=== PATIENT | female | born 1975 | race American Indian/Alaskan Native ===

== ENCOUNTER 2016-11-01 16:14 | Emergency (ER) | payer MEDICARE ==
[~2016-11-01] VITALS: Ht 162.6 cm; Wt 122.7 kg
[~2016-11-01 16:14] MED LIST: ABILIFY; ABILIFY 10MG TA10 MG PO; ABILIFY 15MG TA15 MG PO; ABILIFY DISCMEL10 M1; ABILIFY20 MG PO; AMBIEN10 MG PO; AMOXICILLIN 50500 MG PO; AMOXICILLIN 8751 TAB PO; ANTIVERT 25MG25 MG PO; ATIVAN1 MG PO; AUGMENTIN500 MG/TAB PO; BUSPAR10 MG PO; CELEXA; CELEXA PO; CLARITIN-D 10 M1 T24 PO; CLONAZEPAM PO; CLONAZEPAM1 M1 PO; DOXYCYCLINE 10100 MG PO; INDERAL 10MG10 MG PO; LAMICTAL 100MG100 MG PO; LAMICTAL 25MG T25 MG PO; LAMICTAL PO; LITHIUM CARB300 MG PO; LORTAB 10/500 51 TAB PO; LORTAB 5/500 501 TAB PO; MOBIC 7.5MG7.5 MG PO; MUCINEX FAST-M177 M2 PO; NORCO 325 MG-51 TAB PO; PEN-VEE K500 MG PO; PREDNISONE20 MG PO; PRINIVIL10 MG PO; PROAIR HFA0.09 MG/AC IH; REMERON 15M15 MG/TA1 PO; RISPERDAL3 MG PO; ROXICODONE 55 MG/TAB PO; TOPAMAX 100MG100 M1 PO; TOPAMAX50 MG PO; TOPIRAMATE; TRAZADONE HYDR100 MG PO; TUSS PO; VISTARIL 2525 MG/CAP PO; VISTARIL50 MG PO; VITAMIN B COMPL1 T16 PO; VITAMIN C500 MG PO; ZOFRAN ODT4 MG PO; [UNRECOGNIZED DRUG - OTHER]; [UNRECOGNIZED DRUG - REMARK]
[2016-11-01 16:17] VITALS: BP 139/90; PULSE 111; TEMP 98
[2016-11-01 17:47] LABS: ADJUSTED CALCIUM 8.7 mg/dL (8.4-10.2); ALANINE AMINOTRANSFERASE 49 U/L (9-52); ALBUMIN 4.2 gm/dL (3.5-5.0); ALKALINE PHOSPHATASE 84 U/L (50-136); ANION GAP 12 mmol/L (7-16); BILIRUBIN,TOTAL 0.5 mg/dL (0.0-1.0); BLOOD UREA NITROGEN 6 mg/dL (7-17); CALCIUM 8.9 mg/dL (8.4-10.2); CARBON DIOXIDE 20 mmol/L (22-30); CHLORIDE 107 mmol/L (98-107); GLUCOSE 134 mg/dL (74-106); POTASSIUM 3.5 mmol/L (3.4-5.0); SODIUM 139 mmol/L (137-145); TOTAL PROTEIN 7.3 gm/dL (6.4-8.2)
[2016-11-01 17:48] LABS: ACETAMINOPHEN < 10 ug/mL (10-30); SALICYLATE < 1.0 mg/dL
[2016-11-01 17:56] LABS: BASO # 0.1 (0.0-0.2); BASO % 0.6 % (0.0-2.0); EOS # 0.4 (0.0-0.7); EOS % 3.6 % (0-4.0); GRAN # 7.3 (1.4-6.5); GRAN % 62.1 % (42.2-75.2); HEMATOCRIT 39.3 % (37.0-47.0); HEMOGLOBIN 12.6 g/dl (12.5-16.0); LYMPH # 3.4 (1.2-3.4); LYMPH % 28.7 % (20.0-51.0); MEAN CELL VOLUME 82 fl (80.0-100.0); MEAN CORPUSCULAR HEMOGLOBIN 26 pg (27.0-31.0); MEAN CORPUSCULAR HGB CONC 32 g/dl (33.0-37.0); MONO # 0.5 (0.1-0.6); MONO % 4.4 % (1.7-9.3); PLATELET COUNT 336 K/mm3 (130-400); RED BLOOD COUNT 4.79 M/mm3 (4.10-5.30); REDCELL DISTRIBUTION WIDTH-CV 13.8 % (11.5-14.5); WHITE BLOOD COUNT 11.7 K/mm3 (4.8-10.8)
[2016-11-01 18:00] LABS: AMPHETAMINE URINE POSITIVE; BARBITURATES URINE NEGATIVE; BENZODIAZEPINES URINE NEGATIVE; BUPRENORPHINE URINE NEGATIVE; METHADONE URINE NEGATIVE; OPIATES URINE NEGATIVE; OXYCODONE URINE NEGATIVE; PHENCYCLIDINE URINE NEGATIVE; PROPOXYPHENE URINE NEGATIVE; THC CANNABINOIDS URINE POSITIVE
== END 2016-11-01 17:44 | disposition left against medical advice (07) ==
LOC: COL.ER 16:14
PROVIDERS: Physician Assistant
DX: F29 Unspecified psychosis not due to a substance or known physiological condition (principal); Z53.21 Procedure and treatment not carried out due to patient leaving prior to being seen by health care provider; F31.9 Bipolar disorder, unspecified; Z91.14 Patient's other noncompliance with medication regimen

== ENCOUNTER 2016-11-23 11:11 | Emergency (ER) | payer MEDICARE ==
[~2016-11-23] VITALS: Ht 162.6 cm; Wt 124.1 kg
[2016-11-23 11:22] VITALS: TEMP 98.6
[2016-11-23 12:09] LABS: BASO # 0.1 (0.0-0.2); BASO % 0.4 % (0.0-2.0); EOS # 0.5 (0.0-0.7); EOS % 4.2 % (0-4.0); GRAN # 7.9 (1.4-6.5); GRAN % 66.1 % (42.2-75.2); HEMATOCRIT 38.8 % (37.0-47.0); HEMOGLOBIN 12.5 g/dl (12.5-16.0); MEAN CELL VOLUME 82 fl (80.0-100.0); MEAN CORPUSCULAR HEMOGLOBIN 26 pg (27.0-31.0); MEAN CORPUSCULAR HGB CONC 32 g/dl (33.0-37.0); MONO # 0.5 (0.1-0.6); MONO % 3.9 % (1.7-9.3); PLATELET COUNT 283 K/mm3 (130-400); RED BLOOD COUNT 4.73 M/mm3 (4.10-5.30); REDCELL DISTRIBUTION WIDTH-CV 13.6 % (11.5-14.5)
[2016-11-23 12:26] LABS: ANION GAP 12 mmol/L (7-16); BLOOD UREA NITROGEN 9 mg/dL (7-17); CALCIUM 9.3 mg/dL (8.4-10.2); CARBON DIOXIDE 25 mmol/L (22-30); CHLORIDE 104 mmol/L (98-107); CREATININE, serum 0.87 mg/dL (0.52-1.25); GLUCOSE 115 mg/dL (74-106); POTASSIUM 3.5 mmol/L (3.4-5.0); SODIUM 141 mmol/L (137-145)
[2016-11-23 12:30] LABS: ACETAMINOPHEN < 10 ug/mL (10-30); SALICYLATE < 1.0 mg/dL
[2016-11-23 15:21] VITALS: BP 123/83; PULSE 101
== END 2016-11-23 16:08 ==
LOC: COL.ER 11:11
PROVIDERS: Nurse Practitioner
DX: F31.12 Bipolar disorder, current episode manic without psychotic features, moderate (principal)

== ENCOUNTER 2017-02-17 18:58 | Observation (INO) | payer MEDICARE ==
[~2017-02-17] VITALS: Ht 162.6 cm; Wt 120.8 kg
[2017-02-17 19:51] LABS: BASO # 0.1 (0.0-0.2); BASO % 0.3 % (0.0-2.0); EOS # 0.6 (0.0-0.7); EOS % 3.6 % (0-4.0); GRAN # 10.4 (1.4-6.5); GRAN % 66.2 % (42.2-75.2); HEMATOCRIT 41.5 % (37.0-47.0); HEMOGLOBIN 13.5 g/dl (12.5-16.0); LYMPH # 3.7 (1.2-3.4); LYMPH % 23.9 % (20.0-51.0); MEAN CELL VOLUME 83 fl (80.0-100.0); MEAN CORPUSCULAR HEMOGLOBIN 27 pg (27.0-31.0); MEAN CORPUSCULAR HGB CONC 33 g/dl (33.0-37.0); MEAN PLATELET VOLUME 9.3 fl (7.4-10.4); MONO # 0.8 (0.1-0.6); MONO % 5.2 % (1.7-9.3); PLATELET COUNT 365 K/mm3 (130-400); REDCELL DISTRIBUTION WIDTH-CV 13.5 % (11.5-14.5); WHITE BLOOD COUNT 15.6 K/mm3 (4.8-10.8)
[2017-02-17 20:07] LABS: ACETAMINOPHEN < 10 ug/mL (10-30); ADJUSTED CALCIUM 9.1 mg/dL (8.4-10.2); ALANINE AMINOTRANSFERASE 29 U/L (9-52); ALBUMIN 4.4 gm/dL (3.5-5.0); ALKALINE PHOSPHATASE 79 U/L (50-136); ANION GAP 13 mmol/L (7-16); BILIRUBIN,TOTAL 0.6 mg/dL (0.0-1.0); BLOOD UREA NITROGEN 14 mg/dL (7-17); CALCIUM 9.4 mg/dL (8.4-10.2); CARBON DIOXIDE 24 mmol/L (22-30); CHLORIDE 105 mmol/L (98-107); CREATININE, serum 0.99 mg/dL (0.52-1.25); GLUCOSE 115 mg/dL (74-106); POTASSIUM 3.8 mmol/L (3.4-5.0); SALICYLATE < 1.0 mg/dL; SODIUM 142 mmol/L (137-145); TOTAL PROTEIN 7.8 gm/dL (6.4-8.2)
[2017-02-17 21:15] LABS: PH 6 (5-8); SQUAMOUS EPITHELIAL 20-50 /hpf; URINE APPEARANCE Cloudy; URINE BACTERIA Rare /hpf; URINE BILIRUBIN Negative (NEGATIVE); URINE BLOOD 3+ (NEGATIVE); URINE COLOR Yellow; URINE GLUCOSE Negative (NEGATIVE); URINE KETONE Negative (NEGATIVE); URINE UROBILINOGEN Negative (NEGATIVE)
[2017-02-17 21:24] LABS: AMPHETAMINE URINE POSITIVE; BARBITURATES URINE NEGATIVE; BENZODIAZEPINES URINE NEGATIVE; BUPRENORPHINE URINE NEGATIVE; METHADONE URINE NEGATIVE; OPIATES URINE NEGATIVE; OXYCODONE URINE NEGATIVE; PHENCYCLIDINE URINE NEGATIVE; PROPOXYPHENE URINE NEGATIVE; THC CANNABINOIDS URINE NEGATIVE
[2017-02-18] VITALS (269 sets, daily range): BP systolic 121–142; BP diastolic 68–88; PULSE 73–85; TEMP 97–98.2; O2SAT 90–100
[2017-02-19 08:01] VITALS: PULSE 82; TEMP 98
[2017-02-19 10:45] LABS: BASO # 0.1 (0.0-0.2); BASO % 0.5 % (0.0-2.0); EOS # 0.4 (0.0-0.7); EOS % 3.6 % (0-4.0); GRAN % 68.8 % (42.2-75.2); HEMATOCRIT 39.4 % (37.0-47.0); HEMOGLOBIN 12.6 g/dl (12.5-16.0); LYMPH # 2.6 (1.2-3.4); LYMPH % 22.4 % (20.0-51.0); MEAN CELL VOLUME 84 fl (80.0-100.0); MEAN CORPUSCULAR HEMOGLOBIN 27 pg (27.0-31.0); MEAN CORPUSCULAR HGB CONC 32 g/dl (33.0-37.0); MEAN PLATELET VOLUME 9.4 fl (7.4-10.4); MONO # 0.4 (0.1-0.6); MONO % 3.8 % (1.7-9.3); PLATELET COUNT 306 K/mm3 (130-400); RED BLOOD COUNT 4.71 M/mm3 (4.10-5.30); REDCELL DISTRIBUTION WIDTH-CV 13.3 % (11.5-14.5); WHITE BLOOD COUNT 11.6 K/mm3 (4.8-10.8)
[2017-02-19 14:25] LABS: ADJUSTED CALCIUM 8.7 mg/dL (8.4-10.2); ALBUMIN 3.9 gm/dL (3.5-5.0); BILIRUBIN,TOTAL 0.5 mg/dL (0.0-1.0); CALCIUM 8.6 mg/dL (8.4-10.2); CREATININE, serum 0.78 mg/dL (0.52-1.25); POTASSIUM 3.8 mmol/L (3.4-5.0)
[2017-02-19 16:20] LABS: PH 7 (5-8); SQUAMOUS EPITHELIAL 0-2 /hpf; URINE APPEARANCE Clear; URINE BACTERIA None Seen /hpf; URINE BILIRUBIN Negative (NEGATIVE); URINE BLOOD 2+ (NEGATIVE); URINE COLOR Yellow; URINE GLUCOSE Negative (NEGATIVE); URINE KETONE Negative (NEGATIVE); URINE RBC 0-2 /hpf; URINE UROBILINOGEN Negative (NEGATIVE); URINE WBC 0-2 /hpf
[2017-02-19 20:00] VITALS: BP 135/84; PULSE 88; TEMP 98.3
[2017-02-20 08:43] VITALS: BP 140/97; PULSE 78; TEMP 98.1
[2017-02-20 20:00] VITALS: BP 139/78; PULSE 89; TEMP 98
[2017-02-21 12:10] VITALS: BP 141/88; PULSE 78; TEMP 98.9
== END 2017-02-21 19:00 ==
LOC: COL.ER 18:58 → ICU 23:09
PROVIDERS: Emergency Medicine; Family Medicine; Psychiatry & Neurology Psychiatry
DX: F30.9 Manic episode, unspecified (principal); F15.90 Other stimulant use, unspecified, uncomplicated; J45.909 Unspecified asthma, uncomplicated; N39.0 Urinary tract infection, site not specified
CPT/HCPCS: 90791-AI; G0378

== ENCOUNTER 2017-03-25 06:12 | Emergency (ER) | payer MEDICARE ==
[~2017-03-25] VITALS: Ht 162.6 cm; Wt 118.2 kg
[2017-03-25 06:15] VITALS: BP 145/79; TEMP 97.8
[2017-03-25] MEDS ORDERED: ULTRAM 50MG TAB50 MG PO (06:59)
[2017-03-25 07:05] VITALS: PULSE 97
== END 2017-03-25 07:22 | disposition home or self-care (01) ==
LOC: COL.ER 06:12
DX: S20.212A Contusion of left front wall of thorax, initial encounter (principal); Y09 Assault by unspecified means; F32.9 Major depressive disorder, single episode, unspecified; F17.210 Nicotine dependence, cigarettes, uncomplicated; E66.9 Obesity, unspecified; Z68.41 Body mass index [BMI] 40.0-44.9, adult

== ENCOUNTER 2017-04-28 18:07 | Emergency (ER) | payer MEDICARE ==
[~2017-04-28] VITALS: Ht 162.6 cm; Wt 126.4 kg
[~2017-04-28 18:07] MED LIST changes: +ULTRAM 50MG TAB50 MG PO
[2017-04-28 18:09] VITALS: TEMP 98.5
[2017-04-28 18:30] LABS: BASO # 0.1 (0.0-0.2); BASO % 0.6 % (0.0-2.0); EOS # 0.5 (0.0-0.7); EOS % 3.8 % (0-4.0); GRAN # 8.8 (1.4-6.5); GRAN % 63.8 % (42.2-75.2); HEMATOCRIT 37.4 % (37.0-47.0); LYMPH # 3.5 (1.2-3.4); LYMPH % 25.6 % (20.0-51.0); MEAN CELL VOLUME 83 fl (80.0-100.0); MEAN CORPUSCULAR HEMOGLOBIN 27 pg (27.0-31.0); MEAN CORPUSCULAR HGB CONC 32 g/dl (33.0-37.0); MEAN PLATELET VOLUME 9.7 fl (7.4-10.4); MONO # 0.7 (0.1-0.6); MONO % 5.2 % (1.7-9.3); PLATELET COUNT 320 K/mm3 (130-400); RED BLOOD COUNT 4.52 M/mm3 (4.10-5.30); REDCELL DISTRIBUTION WIDTH-CV 13.8 % (11.5-14.5); WHITE BLOOD COUNT 13.8 K/mm3 (4.8-10.8)
[2017-04-28 18:40] LABS: ADJUSTED CALCIUM 8.6 mg/dL (8.4-10.2); ALANINE AMINOTRANSFERASE 28 U/L (9-52); ALKALINE PHOSPHATASE 74 U/L (50-136); ANION GAP 12 mmol/L (7-16); BILIRUBIN,TOTAL 0.4 mg/dL (0.0-1.0); BLOOD UREA NITROGEN 7 mg/dL (7-17); CALCIUM 8.6 mg/dL (8.4-10.2); CARBON DIOXIDE 19 mmol/L (22-30); CHLORIDE 106 mmol/L (98-107); CREATININE, serum 0.84 mg/dL (0.52-1.25); GLUCOSE 118 mg/dL (74-106); POTASSIUM 3.3 mmol/L (3.4-5.0); SODIUM 138 mmol/L (137-145)
[2017-04-28 18:43] LABS: ACETAMINOPHEN < 10 ug/mL (10-30); SALICYLATE < 1.0 mg/dL
[2017-04-28] MEDS ORDERED: RISPERDAL2 MG PO (20:25)
[2017-04-28] MEDS ORDERED: MOTRIN 200200 MG/TAB PO (20:25)
[2017-04-28 21:22] LABS: AMPHETAMINE URINE NEGATIVE; BARBITURATES URINE NEGATIVE; BENZODIAZEPINES URINE NEGATIVE; BUPRENORPHINE URINE NEGATIVE; METHADONE URINE NEGATIVE; OPIATES URINE NEGATIVE; OXYCODONE URINE NEGATIVE; PHENCYCLIDINE URINE NEGATIVE; PROPOXYPHENE URINE NEGATIVE; THC CANNABINOIDS URINE NEGATIVE
[2017-04-29 00:06] VITALS: BP 130/84
[2017-04-29 03:17] VITALS: PULSE 115
== END 2017-04-29 03:20 ==
LOC: COL.ER 18:07
PROVIDERS: Physician Assistant
DX: F15.10 Other stimulant abuse, uncomplicated (principal); F31.9 Bipolar disorder, unspecified; D72.829 Elevated white blood cell count, unspecified

== ENCOUNTER 2018-02-04 02:55 | Emergency (ER) | payer MEDICARE ==
[~2018-02-04] VITALS: Ht 165.1 cm; Wt 93.2 kg
[~2018-02-04 02:55] MED LIST changes: +MOTRIN 200200 MG/TAB PO; +RISPERDAL2 MG PO
[2018-02-04 02:59] VITALS: TEMP 97.1
[2018-02-04 03:35] LABS: BASO # 0.1 (0.0-0.2); BASO % 0.4 % (0.0-2.0); EOS # 0.4 (0.0-0.7); EOS % 2.9 % (0-4.0); GRAN # 5.9 (1.4-6.5); GRAN % 47.8 % (42.2-75.2); HEMOGLOBIN 12.1 g/dl (12.5-16.0); LYMPH # 5.2 (1.2-3.4); LYMPH % 42.6 % (20.0-51.0); MEAN CELL VOLUME 79 fl (80.0-100.0); MEAN CORPUSCULAR HEMOGLOBIN 27 pg (27.0-31.0); MEAN CORPUSCULAR HGB CONC 34 g/dl (33.0-37.0); MEAN PLATELET VOLUME 9.7 fl (7.4-10.4); MONO # 0.7 (0.1-0.6); MONO % 5.6 % (1.7-9.3); PLATELET COUNT 291 K/mm3 (130-400); RED BLOOD COUNT 4.55 M/mm3 (4.10-5.30); REDCELL DISTRIBUTION WIDTH-CV 13.4 % (11.5-14.5)
[2018-02-04 03:37] LABS: HEMATOCRIT 36.1 % (37.0-47.0)
[2018-02-04 03:43] LABS: COLLECTION METHOD CLEAN CATCH
[2018-02-04 03:45] LABS: ALANINE AMINOTRANSFERASE 26 U/L (9-52); ALBUMIN 4.2 gm/dL (3.5-5.0); ALCOHOL(ethanol),MEDICAL 260 mg/dL; ALKALINE PHOSPHATASE 64 U/L (50-136); ANION GAP 19 mmol/L (7-16); AST,SGOT 21 U/L (15-37); BILIRUBIN,TOTAL 0.2 mg/dL (0.0-1.0); BLOOD UREA NITROGEN 7 mg/dL (7-17); CALCIUM 8.6 mg/dL (8.4-10.2); CARBON DIOXIDE 20 mmol/L (22-30); CHLORIDE 108 mmol/L (98-107); CREATININE, serum 0.58 mg/dL (0.52-1.25); GLUCOSE 111 mg/dL (74-106); POTASSIUM 3.3 mmol/L (3.4-5.0); SODIUM 146 mmol/L (137-145)
[2018-02-04 03:50] LABS: PH 6 (5-8); SQUAMOUS EPITHELIAL 0-2 /hpf; URINE APPEARANCE Clear; URINE BACTERIA None Seen /hpf; URINE BILIRUBIN Negative (NEGATIVE); URINE BLOOD Negative (NEGATIVE); URINE COLOR Colorless; URINE GLUCOSE Negative (NEGATIVE); URINE KETONE Negative (NEGATIVE); URINE LEUKOCYTE ESTERASE Negative (NEGATIVE); URINE NITRATE Negative (NEGATIVE); URINE PROTEIN(semi-quant) Negative (NEGATIVE); URINE RBC 0-2 /hpf; URINE UROBILINOGEN Negative (NEGATIVE)
[2018-02-04 03:50] LABS: ACETAMINOPHEN < 10 ug/mL (10-30); SALICYLATE < 1.0 mg/dL
[2018-02-04 04:03] LABS: TRICYCLIC ANTIDEPRESS URINE NEGATIVE
[2018-02-04 08:57] VITALS: BP 113/74; PULSE 94
== END 2018-02-04 08:58 | disposition home or self-care (01) ==
LOC: COL.ER 02:55
PROVIDERS: Emergency Medicine
DX: F10.129 Alcohol abuse with intoxication, unspecified (principal); F31.9 Bipolar disorder, unspecified; Y90.8 Blood alcohol level of 240 mg/100 ml or more

== ENCOUNTER 2018-02-09 11:11 | Emergency (ER) | payer SELFPAY ==
[~2018-02-09] VITALS: Ht 165.1 cm; Wt 104.5 kg
[2018-02-09 11:13] VITALS: BP 128/73; PULSE 87; TEMP 98.9
== END 2018-02-09 11:40 | disposition left against medical advice (07) ==
LOC: COL.ER 11:11
DX: F15.10 Other stimulant abuse, uncomplicated (principal); F31.9 Bipolar disorder, unspecified

== ENCOUNTER 2018-08-23 08:54 | Emergency (ER) | payer SELFPAY ==
[~2018-08-23] VITALS: Ht 165.1 cm; Wt 90.9 kg
[2018-08-23 10:16] LABS: BASO # 0.1 (0.0-0.2); BASO % 0.6 % (0.0-2.0); EOS # 0.6 (0.0-0.7); GRAN # 5.4 (1.4-6.5); HEMATOCRIT 37.3 % (37.0-47.0); LYMPH # 4.5 (1.2-3.4); LYMPH % 39.1 % (20.0-51.0); MEAN CELL VOLUME 85 fl (80.0-100.0); MEAN CORPUSCULAR HEMOGLOBIN 28 pg (27.0-31.0); MEAN CORPUSCULAR HGB CONC 32 g/dl (33.0-37.0); MEAN PLATELET VOLUME 9.7 fl (7.4-10.4); MONO # 0.9 (0.1-0.6); PLATELET COUNT 296 K/mm3 (130-400); RED BLOOD COUNT 4.37 M/mm3 (4.10-5.30); REDCELL DISTRIBUTION WIDTH-CV 13.7 % (11.5-14.5)
[2018-08-23 10:28] LABS: BILIRUBIN,TOTAL 0.2 mg/dL (0.0-1.0); CALCIUM 8.6 mg/dL (8.4-10.2); CREATININE, serum 0.76 mg/dL (0.52-1.25); POTASSIUM 4.8 mmol/L (3.4-5.0); TOTAL PROTEIN 6.8 gm/dL (6.4-8.2)
[2018-08-23 10:30] LABS: MONOSCREEN NEGATIVE
[2018-08-23] MEDS ORDERED: PHENERGAN 25 TA25 MG PO (13:34)
[2018-08-23] MEDS ORDERED: AMOXICILLIN 50500 MG PO (13:34)
[2018-08-23 13:48] VITALS: BP 133/75; PULSE 77; TEMP 97.9
== END 2018-08-23 13:49 | disposition home or self-care (01) ==
LOC: COL.ER 08:54
PROVIDERS: Emergency Medicine
DX: J03.90 Acute tonsillitis, unspecified (principal); R11.2 Nausea with vomiting, unspecified; R19.7 Diarrhea, unspecified; F31.9 Bipolar disorder, unspecified; Z79.1 Long term (current) use of non-steroidal anti-inflammatories (NSAID)
CPT/HCPCS: J1200; J2550; J7030; Q9967

== ENCOUNTER 2018-09-21 06:54 | Emergency (ER) | payer MEDICAID ==
[~2018-09-21] VITALS: Ht 165.1 cm; Wt 113.6 kg
[~2018-09-21 06:54] MED LIST changes: +PHENERGAN 25 TA25 MG PO
[2018-09-21 07:00] VITALS: TEMP 98.2
[2018-09-21 07:29] LABS: BASO # 0.1 (0.0-0.2); BASO % 0.5 % (0.0-2.0); EOS # 0.5 (0.0-0.7); EOS % 4.5 % (0-4.0); GRAN # 7.6 (1.4-6.5); GRAN % 63.4 % (42.2-75.2); HEMOGLOBIN 12.2 g/dl (12.5-16.0); LYMPH # 2.9 (1.2-3.4); LYMPH % 24.5 % (20.0-51.0); MEAN CELL VOLUME 82 fl (80.0-100.0); MEAN CORPUSCULAR HEMOGLOBIN 28 pg (27.0-31.0); MEAN CORPUSCULAR HGB CONC 34 g/dl (33.0-37.0); MEAN PLATELET VOLUME 9.4 fl (7.4-10.4); MONO # 0.8 (0.1-0.6); MONO % 6.6 % (1.7-9.3); PLATELET COUNT 259 K/mm3 (130-400); RED BLOOD COUNT 4.41 M/mm3 (4.10-5.30); REDCELL DISTRIBUTION WIDTH-CV 13.1 % (11.5-14.5)
[2018-09-21 07:41] LABS: ALANINE AMINOTRANSFERASE 42 U/L (9-52); ALKALINE PHOSPHATASE 65 U/L (50-136); ANION GAP 7 mmol/L (7-16); AST,SGOT 20 U/L (15-37); BILIRUBIN,TOTAL 0.4 mg/dL (0.0-1.0); BLOOD UREA NITROGEN 10 mg/dL (7-17); CARBON DIOXIDE 24 mmol/L (22-30); CHLORIDE 110 mmol/L (98-107); CREATININE, serum 0.67 mg/dL (0.52-1.25); GLUCOSE 104 mg/dL (74-106); POTASSIUM 3.8 mmol/L (3.4-5.0); SODIUM 141 mmol/L (137-145)
[2018-09-21 07:49] LABS: ACETAMINOPHEN < 10 ug/mL (10-30); ALCOHOL(ethanol),MEDICAL < 10 mg/dL; SALICYLATE < 1.0 mg/dL
[2018-09-21 08:06] LABS: COLLECTION METHOD CLEAN CATCH
[2018-09-21 08:11] LABS: MUCOUS Present /lpf; PH 5 (5-8); URINE APPEARANCE Clear; URINE BACTERIA Rare /hpf; URINE BILIRUBIN Negative (NEGATIVE); URINE BLOOD 1+ (NEGATIVE); URINE COLOR Straw; URINE GLUCOSE Negative (NEGATIVE); URINE KETONE Negative (NEGATIVE); URINE LEUKOCYTE ESTERASE Negative (NEGATIVE); URINE NITRATE Negative (NEGATIVE); URINE PROTEIN(semi-quant) Negative (NEGATIVE); URINE RBC 0-2 /hpf; URINE UROBILINOGEN Negative (NEGATIVE)
[2018-09-21 08:26] LABS: TRICYCLIC ANTIDEPRESS URINE NEGATIVE
[2018-09-21] MEDS ORDERED: INDERAL40 MG PO (17:49)
[2018-09-21 18:47] VITALS: BP 161/78; PULSE 75
== END 2018-09-21 18:47 ==
LOC: COL.ER 06:54
PROVIDERS: Family Medicine
DX: R45.851 Suicidal ideations (principal); F31.9 Bipolar disorder, unspecified

== ENCOUNTER 2019-01-17 15:50 | Emergency (ER) | payer MEDICAID ==
[~2019-01-17] VITALS: Ht 165.1 cm; Wt 113.6 kg
[~2019-01-17 15:50] MED LIST changes: +INDERAL40 MG PO
[2019-01-17] MEDS ORDERED: PAXIL 20MG20 MG PO (16:41)
[2019-01-17 16:44] LABS: BASO # 0.1 (0.0-0.2); BASO % 0.4 % (0.0-2.0); EOS # 0.4 (0.0-0.7); EOS % 3.3 % (0-4.0); GRAN # 7.9 (1.4-6.5); HEMOGLOBIN 11.7 g/dl (12.5-16.0); LYMPH # 3.2 (1.2-3.4); LYMPH % 25.8 % (20.0-51.0); MEAN CELL VOLUME 82 fl (80.0-100.0); MEAN CORPUSCULAR HEMOGLOBIN 27 pg (27.0-31.0); MEAN CORPUSCULAR HGB CONC 33 g/dl (33.0-37.0); MEAN PLATELET VOLUME 9.8 fl (7.4-10.4); MONO # 0.8 (0.1-0.6); MONO % 6.2 % (1.7-9.3); PLATELET COUNT 290 K/mm3 (130-400); RED BLOOD COUNT 4.36 M/mm3 (4.10-5.30); REDCELL DISTRIBUTION WIDTH-CV 13.1 % (11.5-14.5)
[2019-01-17 16:54] LABS: ALANINE AMINOTRANSFERASE 29 U/L (9-52); ALBUMIN 4.1 gm/dL (3.5-5.0); ALKALINE PHOSPHATASE 80 U/L (50-136); ANION GAP 9 mmol/L (7-16); AST,SGOT 17 U/L (15-37); BILIRUBIN,TOTAL 0.5 mg/dL (0.0-1.0); BLOOD UREA NITROGEN 7 mg/dL (7-17); CALCIUM 8.9 mg/dL (8.4-10.2); CARBON DIOXIDE 25 mmol/L (22-30); CHLORIDE 104 mmol/L (98-107); CREATININE, serum 0.71 (0.52-1.25); GLUCOSE 143 mg/dL (74-106); HEMATOCRIT 35.7 % (37.0-47.0); POTASSIUM 3.9 mmol/L (3.4-5.0); SODIUM 138 mmol/L (137-145); TOTAL PROTEIN 7.2 gm/dL (6.4-8.2)
[2019-01-17 16:55] LABS: ALCOHOL(ethanol),MEDICAL < 10 mg/dL
[2019-01-17 17:30] LABS: COLLECTION METHOD CLEAN CATCH
[2019-01-17 17:40] LABS: MUCOUS Present /lpf; PH 6 (5-8); URINE APPEARANCE Clear; URINE BACTERIA Rare /hpf; URINE BILIRUBIN Negative (NEGATIVE); URINE BLOOD 2+ (NEGATIVE); URINE COLOR Straw; URINE GLUCOSE Negative (NEGATIVE); URINE KETONE Negative (NEGATIVE); URINE LEUKOCYTE ESTERASE Negative (NEGATIVE); URINE NITRATE Negative (NEGATIVE); URINE PROTEIN(semi-quant) Negative (NEGATIVE); URINE UROBILINOGEN Negative (NEGATIVE)
[2019-01-17 17:45] LABS: TRICYCLIC ANTIDEPRESS URINE NEGATIVE
[2019-01-19 21:51] LABS: TRICYCLIC ANTIDEPRESS URINE NEGATIVE
[2019-01-23 09:02] VITALS: BP 130/72; TEMP 97.8
[2019-01-23 11:00] VITALS: PULSE 76
== END 2019-01-23 11:22 | disposition short-term general hospital (02) ==
LOC: COL.ER 15:50
PROVIDERS: Emergency Medicine; Family Medicine
DX: F20.9 Schizophrenia, unspecified (principal); F31.9 Bipolar disorder, unspecified; F17.210 Nicotine dependence, cigarettes, uncomplicated
CPT/HCPCS: J1630

== ENCOUNTER 2019-02-15 13:20 | Emergency (ER) | payer MEDICAID ==
[~2019-02-15] VITALS: Ht 165.1 cm; Wt 113.6 kg
[~2019-02-15 13:20] MED LIST changes: +PAXIL 20MG20 MG PO
--- NOTE | 2019-02-15 14:01 | NUR ---
GIAN called by warehouse pricing and inventory clerk to contact patient's family about patient being admitted to the ED and needing to be flown to [facility]. GIAN met with patient and inquired if she would like GIAN to contact her family. Patient requested SW not contact her family about transfer.
[2019-02-15 14:05] VITALS: BP 120/59
[2019-02-15 14:20] VITALS: PULSE 76; TEMP 98.8
== END 2019-02-15 14:26 | disposition short-term general hospital (02) ==
LOC: COL.ER 13:20
DX: S61.512A Laceration without foreign body of left wrist, initial encounter (principal); S61.511A Laceration without foreign body of right wrist, initial encounter; F17.210 Nicotine dependence, cigarettes, uncomplicated; F31.9 Bipolar disorder, unspecified; X78.9XXA Intentional self-harm by unspecified sharp object, initial encounter

== ENCOUNTER 2019-02-22 23:14 | Emergency (ER) | payer MEDICAID ==
[~2019-02-22] VITALS: Ht 165.1 cm; Wt 119.5 kg
[2019-02-22 23:18] VITALS: BP 133/83; TEMP 98.2
[2019-02-23 00:14] LABS: BASO # 0.1 (0.0-0.2); BASO % 0.5 % (0.0-2.0); EOS # 0.7 (0.0-0.7); EOS % 4.6 % (0-4.0); GRAN # 9.1 (1.4-6.5); GRAN % 61.9 % (42.2-75.2); HEMATOCRIT 38.7 % (37.0-47.0); HEMOGLOBIN 12.4 g/dl (12.5-16.0); LYMPH # 3.8 (1.2-3.4); MEAN CELL VOLUME 85 fl (80.0-100.0); MEAN CORPUSCULAR HEMOGLOBIN 27 pg (27.0-31.0); MEAN CORPUSCULAR HGB CONC 32 g/dl (33.0-37.0); MEAN PLATELET VOLUME 9.4 fl (7.4-10.4); MONO # 0.9 (0.1-0.6); MONO % 5.9 % (1.7-9.3); PLATELET COUNT 379 K/mm3 (130-400); RED BLOOD COUNT 4.53 M/mm3 (4.10-5.30); REDCELL DISTRIBUTION WIDTH-CV 13.7 % (11.5-14.5)
[2019-02-23 00:35] LABS: ACETAMINOPHEN < 10 ug/mL (10-30); ALANINE AMINOTRANSFERASE 52 U/L (9-52); ALBUMIN 4.4 gm/dL (3.5-5.0); ALCOHOL(ethanol),MEDICAL < 10 mg/dL; ALKALINE PHOSPHATASE 101 U/L (50-136); ANION GAP 10 mmol/L (7-16); AST,SGOT 29 U/L (15-37); BILIRUBIN,TOTAL 0.4 mg/dL (0.0-1.0); BLOOD UREA NITROGEN 10 mg/dL (7-17); CALCIUM 9.4 mg/dL (8.4-10.2); CARBON DIOXIDE 22 mmol/L (22-30); CHLORIDE 108 mmol/L (98-107); CREATININE, serum 0.78 (0.52-1.25); GLUCOSE 129 mg/dL (74-106); POTASSIUM 4.1 mmol/L (3.4-5.0); SALICYLATE < 1.0 mg/dL; SODIUM 140 mmol/L (137-145); TOTAL PROTEIN 8.1 gm/dL (6.4-8.2)
[2019-02-23 01:18] LABS: COLLECTION METHOD CLEAN CATCH
[2019-02-23 01:54] LABS: PH 5 (5-8); SQUAMOUS EPITHELIAL 0-2 /hpf; URINE APPEARANCE Clear; URINE BACTERIA None Seen /hpf; URINE BILIRUBIN Negative (NEGATIVE); URINE BLOOD Negative (NEGATIVE); URINE COLOR Straw; URINE GLUCOSE Negative (NEGATIVE); URINE KETONE Negative (NEGATIVE); URINE LEUKOCYTE ESTERASE Negative (NEGATIVE); URINE NITRATE Negative (NEGATIVE); URINE PROTEIN(semi-quant) Negative (NEGATIVE); URINE RBC 0-2 /hpf; URINE UROBILINOGEN Negative (NEGATIVE)
[2019-02-23 01:55] LABS: TRICYCLIC ANTIDEPRESS URINE NEGATIVE
[2019-02-23 02:20] VITALS: PULSE 133
== END 2019-02-23 02:20 | disposition home or self-care (01) ==
LOC: COL.ER 23:14
PROVIDERS: Nurse Practitioner
DX: F22 Delusional disorders (principal); F15.10 Other stimulant abuse, uncomplicated; F17.210 Nicotine dependence, cigarettes, uncomplicated; F31.9 Bipolar disorder, unspecified

== ENCOUNTER → 2019-04-03 | Emergency (ER) | payer MEDICAID, MEDICARE ==
[~2019-04-03] VITALS: Ht 165.1 cm; Wt 113.6 kg
[2019-04-03 11:49] VITALS: TEMP 97.7
[2019-04-03 13:23] VITALS: BP 106/58; PULSE 67
== END ==
LOC: COL.ER 11:25
DX: J40 Bronchitis, not specified as acute or chronic (principal); F17.210 Nicotine dependence, cigarettes, uncomplicated; F31.9 Bipolar disorder, unspecified; Z88.6 Allergy status to analgesic agent

== ENCOUNTER 2019-04-17 06:05 | Emergency (ER) | payer MEDICARE, MEDICAID ==
[~2019-04-17] VITALS: Ht 165.1 cm; Wt 113.6 kg
[2019-04-17 06:12] VITALS: BP 130/83; TEMP 98.9
[2019-04-17 06:23] LABS: COLLECTION METHOD CLEAN CATCH
[2019-04-17 06:30] LABS: PH 6 (5-8); SQUAMOUS EPITHELIAL 0-2 /hpf; URINE APPEARANCE Clear; URINE BACTERIA None Seen /hpf; URINE BILIRUBIN Negative (NEGATIVE); URINE BLOOD Negative (NEGATIVE); URINE COLOR Colorless; URINE GLUCOSE Negative (NEGATIVE); URINE KETONE Negative (NEGATIVE); URINE LEUKOCYTE ESTERASE Negative (NEGATIVE); URINE NITRATE Negative (NEGATIVE); URINE PROTEIN(semi-quant) Negative (NEGATIVE); URINE RBC 0-2 /hpf; URINE UROBILINOGEN Negative (NEGATIVE)
[2019-04-17 06:35] LABS: TRICYCLIC ANTIDEPRESS URINE NEGATIVE
[2019-04-17 07:14] LABS: HEMATOCRIT 40.9 % (37.0-47.0); HEMOGLOBIN 13.3 g/dl (12.5-16.0); MEAN CELL VOLUME 84 fl (80.0-100.0); MEAN CORPUSCULAR HEMOGLOBIN 27 pg (27.0-31.0); MEAN CORPUSCULAR HGB CONC 33 g/dl (33.0-37.0); MEAN PLATELET VOLUME 9.3 fl (7.4-10.4); PLATELET COUNT 326 K/mm3 (130-400); RED BLOOD COUNT 4.88 M/mm3 (4.10-5.30); REDCELL DISTRIBUTION WIDTH-CV 13.9 % (11.5-14.5)
[2019-04-17 07:15] LABS: ALANINE AMINOTRANSFERASE 22 U/L (9-52); ALKALINE PHOSPHATASE 72 U/L (50-136); ANION GAP 10 mmol/L (7-16); AST,SGOT 22 U/L (15-37); BILIRUBIN,TOTAL 0.4 mg/dL (0.0-1.0); BLOOD UREA NITROGEN 9 mg/dL (7-17); CALCIUM 8.9 mg/dL (8.4-10.2); CARBON DIOXIDE 22 mmol/L (22-30); CHLORIDE 105 mmol/L (98-107); CREATININE, serum 0.57 (0.52-1.25); GLUCOSE 110 mg/dL (74-106); POTASSIUM 4.3 mmol/L (3.4-5.0); SODIUM 138 mmol/L (137-145); TOTAL PROTEIN 7.3 gm/dL (6.4-8.2)
[2019-04-17 07:28] LABS: ACETAMINOPHEN < 10 ug/mL (10-30); ALCOHOL(ethanol),MEDICAL < 10 mg/dL; SALICYLATE < 1.0 mg/dL
[2019-04-17 07:39] LABS: BAND 1 % (0-10); EOSINOPHIL 2 % (0-4); LYMPHOCYTE 22 % (20.0-51.0); NEUTROPHILS 74 % (42.0-75.2)
[2019-04-17 07:40] LABS: PLATELET ESTIMATE NORMAL (NORMAL)
[2019-04-17 08:20] VITALS: PULSE 98
== END 2019-04-17 08:20 | disposition home or self-care (01) ==
LOC: COL.ER 06:05
PROVIDERS: Emergency Medicine
DX: F51.5 Nightmare disorder (principal); F31.9 Bipolar disorder, unspecified; F17.210 Nicotine dependence, cigarettes, uncomplicated; F12.10 Cannabis abuse, uncomplicated

== ENCOUNTER 2019-04-25 23:13 | Emergency (ER) | payer MEDICAID ==
[~2019-04-25] VITALS: Ht 165.1 cm; Wt 111.4 kg
[2019-04-25 23:32] VITALS: TEMP 98.9
[2019-04-26] MEDS ORDERED: RISPERDAL3 MG PO (00:44)
[2019-04-26 01:10] LABS: BASO # 0.1 (0.0-0.2); BASO % 0.4 % (0.0-2.0); EOS # 0.6 (0.0-0.7); EOS % 4.8 % (0-4.0); GRAN # 7.4 (1.4-6.5); GRAN % 59.9 % (42.2-75.2); HEMATOCRIT 38.1 % (37.0-47.0); HEMOGLOBIN 12.4 g/dl (12.5-16.0); LYMPH # 3.4 (1.2-3.4); LYMPH % 27.4 % (20.0-51.0); MEAN CELL VOLUME 83 fl (80.0-100.0); MEAN CORPUSCULAR HEMOGLOBIN 27 pg (27.0-31.0); MEAN CORPUSCULAR HGB CONC 33 g/dl (33.0-37.0); MEAN PLATELET VOLUME 9.5 fl (7.4-10.4); MONO # 0.9 (0.1-0.6); PLATELET COUNT 315 K/mm3 (130-400); REDCELL DISTRIBUTION WIDTH-CV 13.2 % (11.5-14.5)
[2019-04-26 01:22] LABS: ALANINE AMINOTRANSFERASE 27 U/L (9-52); ALBUMIN 3.9 gm/dL (3.5-5.0); ALKALINE PHOSPHATASE 79 U/L (50-136); ANION GAP 12 mmol/L (7-16); AST,SGOT 19 U/L (15-37); BILIRUBIN,TOTAL 0.3 mg/dL (0.0-1.0); BLOOD UREA NITROGEN 9 mg/dL (7-17); CALCIUM 8.9 mg/dL (8.4-10.2); CARBON DIOXIDE 22 mmol/L (22-30); CHLORIDE 105 mmol/L (98-107); CREATININE, serum 0.63 (0.52-1.25); GLUCOSE 104 mg/dL (74-106); POTASSIUM 3.8 mmol/L (3.4-5.0); SODIUM 139 mmol/L (137-145); TOTAL PROTEIN 7.1 gm/dL (6.4-8.2)
[2019-04-26 01:34] LABS: TROPONIN-I < 0.012 ng/mL (0.000-0.035)
[2019-04-26 02:03] VITALS: BP 128/76; PULSE 80
== END 2019-04-26 02:03 | disposition home or self-care (01) ==
LOC: COL.ER 23:13
PROVIDERS: Emergency Medicine
DX: R06.02 Shortness of breath (principal); F17.210 Nicotine dependence, cigarettes, uncomplicated; F12.90 Cannabis use, unspecified, uncomplicated

== ENCOUNTER 2019-07-10 12:13 | Emergency (ER) | payer MEDICAID ==
[~2019-07-10] VITALS: Ht 165.1 cm; Wt 113.6 kg
[2019-07-10 12:21] VITALS: TEMP 97.6
[2019-07-10 12:34] VITALS: BP 137/78; PULSE 89
== END 2019-07-10 12:48 | disposition left against medical advice (07) ==
LOC: COL.ER 12:13
DX: R41.840 Attention and concentration deficit (principal)

== ENCOUNTER 2019-07-10 13:23 | Emergency (ER) | payer MEDICAID ==
[~2019-07-10] VITALS: Ht 165.1 cm; Wt 113.6 kg
[2019-07-10 14:37] LABS: BASO # 0.1 (0.0-0.2); BASO % 0.4 % (0.0-2.0); EOS # 0.4 (0.0-0.7); EOS % 3.3 % (0-4.0); GRAN # 8.1 (1.4-6.5); GRAN % 62.9 % (42.2-75.2); HEMOGLOBIN 12.4 g/dl (12.5-16.0); LYMPH # 3.2 (1.2-3.4); LYMPH % 24.8 % (20.0-51.0); MEAN CELL VOLUME 81 fl (80.0-100.0); MEAN CORPUSCULAR HEMOGLOBIN 26 pg (27.0-31.0); MEAN CORPUSCULAR HGB CONC 33 g/dl (33.0-37.0); MEAN PLATELET VOLUME 9.8 fl (7.4-10.4); MONO % 7.9 % (1.7-9.3); PLATELET COUNT 295 K/mm3 (130-400); RED BLOOD COUNT 4.69 M/mm3 (4.10-5.30); REDCELL DISTRIBUTION WIDTH-CV 13.1 % (11.5-14.5)
[2019-07-10 14:44] LABS: ALANINE AMINOTRANSFERASE 53 U/L (9-52); ALBUMIN 4.5 gm/dL (3.5-5.0); ALKALINE PHOSPHATASE 83 U/L (50-136); ANION GAP 10 mmol/L (7-16); AST,SGOT 40 U/L (15-37); BILIRUBIN,TOTAL 0.7 mg/dL (0.0-1.0); BLOOD UREA NITROGEN 8 mg/dL (7-17); CALCIUM 8.9 mg/dL (8.4-10.2); CARBON DIOXIDE 23 mmol/L (22-30); CHLORIDE 105 mmol/L (98-107); CREATININE, serum 0.67 (0.52-1.25); GLUCOSE 99 mg/dL (74-106); POTASSIUM 3.6 mmol/L (3.4-5.0); SODIUM 138 mmol/L (137-145); TOTAL PROTEIN 7.9 gm/dL (6.4-8.2)
[2019-07-10 15:01] LABS: ACETAMINOPHEN < 10 ug/mL (10-30); ALCOHOL(ethanol),MEDICAL < 10 mg/dL; SALICYLATE < 1.0 mg/dL
[2019-07-11 02:57] LABS: COLLECTION METHOD CLEAN CATCH
[2019-07-11 03:03] LABS: MUCOUS Present /lpf; PH 5 (5-8); SQUAMOUS EPITHELIAL 20-50 /hpf; URINE APPEARANCE Cloudy; URINE BACTERIA None Seen /hpf; URINE BILIRUBIN Negative (NEGATIVE); URINE BLOOD Negative (NEGATIVE); URINE COLOR Yellow; URINE GLUCOSE Negative (NEGATIVE); URINE KETONE Negative (NEGATIVE); URINE LEUKOCYTE ESTERASE Negative (NEGATIVE); URINE NITRATE Negative (NEGATIVE); URINE PROTEIN(semi-quant) Negative (NEGATIVE); URINE RBC 0-2 /hpf; URINE UROBILINOGEN Negative (NEGATIVE)
[2019-07-11 03:16] LABS: TRICYCLIC ANTIDEPRESS URINE NEGATIVE
[2019-07-11 06:00] VITALS: TEMP 98.1
[2019-07-11 15:30] VITALS: BP 139/85; PULSE 87
== END 2019-07-11 15:32 | disposition home or self-care (01) ==
LOC: COL.ER 13:23
PROVIDERS: Nurse Practitioner
DX: F29 Unspecified psychosis not due to a substance or known physiological condition (principal); F15.10 Other stimulant abuse, uncomplicated; F31.9 Bipolar disorder, unspecified; F17.210 Nicotine dependence, cigarettes, uncomplicated

== ENCOUNTER 2019-07-31 17:26 | Emergency (ER) | payer MEDICAID ==
[~2019-07-31] VITALS: Ht 165.1 cm; Wt 127.3 kg
[2019-07-31 17:33] VITALS: TEMP 98.3
[2019-07-31 17:54] LABS: COLLECTION METHOD CLEAN CATCH
[2019-07-31 18:15] LABS: MUCOUS Present /lpf; PH 5 (5-8); URINE APPEARANCE Cloudy; URINE BACTERIA Rare /hpf; URINE BILIRUBIN Negative (NEGATIVE); URINE BLOOD Negative (NEGATIVE); URINE COLOR Yellow; URINE GLUCOSE Negative (NEGATIVE); URINE KETONE Negative (NEGATIVE); URINE LEUKOCYTE ESTERASE Negative (NEGATIVE); URINE NITRATE Negative (NEGATIVE); URINE PROTEIN(semi-quant) Negative (NEGATIVE); URINE RBC 0-2 /hpf; URINE UROBILINOGEN Negative (NEGATIVE)
[2019-07-31 18:20] LABS: TRICYCLIC ANTIDEPRESS URINE NEGATIVE
[2019-07-31 18:56] LABS: BASO # 0.1 (0.0-0.2); BASO % 0.5 % (0.0-2.0); EOS # 0.4 (0.0-0.7); EOS % 2.8 % (0-4.0); GRAN # 8.5 (1.4-6.5); GRAN % 64.7 % (42.2-75.2); HEMOGLOBIN 12.7 g/dl (12.5-16.0); LYMPH # 3.2 (1.2-3.4); LYMPH % 24.1 % (20.0-51.0); MEAN CELL VOLUME 83 fl (80.0-100.0); MEAN CORPUSCULAR HEMOGLOBIN 27 pg (27.0-31.0); MEAN CORPUSCULAR HGB CONC 33 g/dl (33.0-37.0); MEAN PLATELET VOLUME 9.6 fl (7.4-10.4); MONO % 7.4 % (1.7-9.3); PLATELET COUNT 322 K/mm3 (130-400); RED BLOOD COUNT 4.72 M/mm3 (4.10-5.30); REDCELL DISTRIBUTION WIDTH-CV 13.1 % (11.5-14.5)
[2019-07-31 19:04] LABS: ALANINE AMINOTRANSFERASE 35 U/L (9-52); ALBUMIN 4.8 gm/dL (3.5-5.0); ALKALINE PHOSPHATASE 85 U/L (50-136); ANION GAP 10 mmol/L (7-16); AST,SGOT 22 U/L (15-37); BILIRUBIN,TOTAL 0.7 mg/dL (0.0-1.0); BLOOD UREA NITROGEN 8 mg/dL (7-17); CARBON DIOXIDE 24 mmol/L (22-30); CHLORIDE 103 mmol/L (98-107); CREATININE, serum 0.68 (0.52-1.25); GLUCOSE 96 mg/dL (74-106); SODIUM 138 mmol/L (137-145)
[2019-07-31 19:08] LABS: ACETAMINOPHEN < 10 ug/mL (10-30); ALCOHOL(ethanol),MEDICAL < 10 mg/dL; SALICYLATE < 1.0 mg/dL
[2019-08-01 14:45] VITALS: BP 123/90; PULSE 90
== END 2019-08-01 14:45 | disposition home or self-care (01) ==
LOC: COL.ER 17:26
PROVIDERS: Nurse Practitioner
DX: R44.3 Hallucinations, unspecified (principal); F31.9 Bipolar disorder, unspecified; F17.210 Nicotine dependence, cigarettes, uncomplicated; Z88.6 Allergy status to analgesic agent
CPT/HCPCS: J1630; J2060

== ENCOUNTER 2019-08-14 16:48 | Emergency (ER) | payer MEDICAID ==
[~2019-08-14] VITALS: Ht 165.1 cm; Wt 109.1 kg
[2019-08-14 16:52] VITALS: TEMP 97.7
[2019-08-14] MEDS ORDERED: MYTREX OINT 10015 GM TP (17:34)
[2019-08-14] MEDS ORDERED: FLAGYL500 MG PO (18:36)
[2019-08-14 18:40] VITALS: BP 148/87; PULSE 85
== END 2019-08-14 18:42 | disposition home or self-care (01) ==
LOC: COL.ER 16:48
DX: N76.0 Acute vaginitis (principal); R21 Rash and other nonspecific skin eruption; B96.89 Other specified bacterial agents as the cause of diseases classified elsewhere; F17.210 Nicotine dependence, cigarettes, uncomplicated; F31.9 Bipolar disorder, unspecified; J45.909 Unspecified asthma, uncomplicated; Z88.6 Allergy status to analgesic agent

== ENCOUNTER 2019-08-16 17:39 | Emergency (ER) | payer MEDICAID ==
[~2019-08-16] VITALS: Ht 165.1 cm; Wt 100.0 kg
[~2019-08-16 17:39] MED LIST changes: +FLAGYL500 MG PO; +MYTREX OINT 10015 GM TP
[2019-08-16] MEDS ORDERED: INDERAL40 MG PO (17:43)
[2019-08-16] MEDS ORDERED: FLAGYL500 MG PO (17:44)
[2019-08-16] MEDS ORDERED: INVEGA6 MG PO (17:44)
[2019-08-16 17:47] VITALS: TEMP 98.3
[2019-08-16 18:50] LABS: COLLECTION METHOD CLEAN CATCH
[2019-08-16 19:01] LABS: PH 5 (5-8); URINE APPEARANCE Hazy; URINE BACTERIA None Seen /hpf; URINE BILIRUBIN Negative (NEGATIVE); URINE BLOOD Negative (NEGATIVE); URINE COLOR Straw; URINE GLUCOSE Negative (NEGATIVE); URINE KETONE Negative (NEGATIVE); URINE LEUKOCYTE ESTERASE Trace (NEGATIVE); URINE NITRATE Negative (NEGATIVE); URINE PROTEIN(semi-quant) Negative (NEGATIVE); URINE RBC 0-2 /hpf; URINE UROBILINOGEN Negative (NEGATIVE)
[2019-08-16 19:24] LABS: TRICYCLIC ANTIDEPRESS URINE NEGATIVE
[2019-08-16 19:52] VITALS: BP 125/78; PULSE 82
== END 2019-08-16 20:00 | disposition home or self-care (01) ==
LOC: COL.ER 17:39
PROVIDERS: Nurse Practitioner
DX: M62.838 Other muscle spasm (principal); F15.129 Other stimulant abuse with intoxication, unspecified; F17.210 Nicotine dependence, cigarettes, uncomplicated
CPT/HCPCS: J1630; J2060

== ENCOUNTER 2019-08-19 21:27 | Emergency (ER) | payer MEDICAID ==
[~2019-08-19] VITALS: Ht 165.1 cm; Wt 131.8 kg
[~2019-08-19 21:27] MED LIST changes: +INVEGA6 MG PO
[2019-08-19 21:56] LABS: COLLECTION METHOD CLEAN CATCH
[2019-08-19 22:01] LABS: PH 5 (5-8); URINE APPEARANCE Hazy; URINE BACTERIA Rare /hpf; URINE BILIRUBIN Negative (NEGATIVE); URINE BLOOD Negative (NEGATIVE); URINE COLOR Yellow; URINE GLUCOSE Negative (NEGATIVE); URINE KETONE Negative (NEGATIVE); URINE LEUKOCYTE ESTERASE Trace (NEGATIVE); URINE NITRATE Negative (NEGATIVE); URINE PROTEIN(semi-quant) Negative (NEGATIVE); URINE UROBILINOGEN Negative (NEGATIVE)
[2019-08-19 22:16] LABS: TRICYCLIC ANTIDEPRESS URINE NEGATIVE
[2019-08-19 22:50] LABS: BASO % 0.4 % (0.0-2.0); EOS # 0.3 (0.0-0.7); EOS % 3.5 % (0-4.0); GRAN # 6.6 (1.4-6.5); GRAN % 67.2 % (42.2-75.2); HEMATOCRIT 41.2 % (37.0-47.0); HEMOGLOBIN 13.5 g/dl (12.5-16.0); LYMPH # 2.3 (1.2-3.4); LYMPH % 23.2 % (20.0-51.0); MEAN CELL VOLUME 82 fl (80.0-100.0); MEAN CORPUSCULAR HEMOGLOBIN 27 pg (27.0-31.0); MEAN CORPUSCULAR HGB CONC 33 g/dl (33.0-37.0); MEAN PLATELET VOLUME 9.5 fl (7.4-10.4); MONO # 0.5 (0.1-0.6); PLATELET COUNT 320 K/mm3 (130-400); RED BLOOD COUNT 5.02 M/mm3 (4.10-5.30); REDCELL DISTRIBUTION WIDTH-CV 13.2 % (11.5-14.5)
[2019-08-19 22:58] VITALS: TEMP 98.6
[2019-08-19 23:02] LABS: ACETAMINOPHEN < 10 ug/mL (10-30); ALANINE AMINOTRANSFERASE 22 U/L (9-52); ALBUMIN 4.3 gm/dL (3.5-5.0); ALCOHOL(ethanol),MEDICAL < 10 mg/dL; ALKALINE PHOSPHATASE 67 U/L (50-136); ANION GAP 12 mmol/L (7-16); AST,SGOT 24 U/L (15-37); BILIRUBIN,TOTAL 0.3 mg/dL (0.0-1.0); BLOOD UREA NITROGEN 9 mg/dL (7-17); CALCIUM 9.1 mg/dL (8.4-10.2); CARBON DIOXIDE 19 mmol/L (22-30); CHLORIDE 107 mmol/L (98-107); CREATININE, serum 0.65 (0.52-1.25); GLUCOSE 168 mg/dL (74-106); POTASSIUM 4.1 mmol/L (3.4-5.0); SODIUM 139 mmol/L (137-145); TOTAL PROTEIN 7.7 gm/dL (6.4-8.2)
[2019-08-20 02:09] VITALS: BP 138/86; PULSE 125
== END 2019-08-20 02:11 | disposition home or self-care (01) ==
LOC: COL.ER 21:27
PROVIDERS: Emergency Medicine
DX: F31.9 Bipolar disorder, unspecified (principal); F17.210 Nicotine dependence, cigarettes, uncomplicated

== ENCOUNTER 2019-10-25 04:24 | Emergency (ER) | payer MEDICAID ==
[~2019-10-25] VITALS: Ht 162.6 cm; Wt 113.6 kg
[2019-10-25 05:15] LABS: BASO # 0.1 (0.0-0.2); BASO % 0.4 % (0.0-2.0); EOS # 0.2 (0.0-0.7); EOS % 1.1 % (0-4.0); GRAN # 10.1 (1.4-6.5); GRAN % 71.5 % (42.2-75.2); HEMATOCRIT 41.5 % (37.0-47.0); HEMOGLOBIN 13.7 g/dl (12.5-16.0); LYMPH # 2.8 (1.2-3.4); LYMPH % 20.1 % (20.0-51.0); MEAN CELL VOLUME 81 fl (80.0-100.0); MEAN CORPUSCULAR HEMOGLOBIN 27 pg (27.0-31.0); MEAN CORPUSCULAR HGB CONC 33 g/dl (33.0-37.0); MEAN PLATELET VOLUME 9.3 fl (7.4-10.4); MONO # 0.9 (0.1-0.6); PLATELET COUNT 354 K/mm3 (130-400); REDCELL DISTRIBUTION WIDTH-CV 13.3 % (11.5-14.5)
[2019-10-25 05:28] LABS: ALANINE AMINOTRANSFERASE 59 U/L (9-52); ALBUMIN 4.9 gm/dL (3.5-5.0); ALKALINE PHOSPHATASE 92 U/L (50-136); ANION GAP 13 mmol/L (7-16); AST,SGOT 51 U/L (15-37); BILIRUBIN,TOTAL 0.7 mg/dL (0.0-1.0); BLOOD UREA NITROGEN 8 mg/dL (7-17); CALCIUM 9.2 mg/dL (8.4-10.2); CARBON DIOXIDE 23 mmol/L (22-30); CHLORIDE 105 mmol/L (98-107); CREATININE, serum 0.76 (0.52-1.25); GLUCOSE 108 mg/dL (74-106); POTASSIUM 3.7 mmol/L (3.4-5.0); SODIUM 141 mmol/L (137-145); TOTAL PROTEIN 8.6 gm/dL (6.4-8.2)
[2019-10-25 05:30] LABS: ACETAMINOPHEN < 10 ug/mL (10-30); ALCOHOL(ethanol),MEDICAL < 10 mg/dL; SALICYLATE < 1.0 mg/dL
[2019-10-25 07:36] LABS: COLLECTION METHOD CLEAN CATCH
[2019-10-25 07:52] LABS: TRICYCLIC ANTIDEPRESS URINE NEGATIVE
[2019-10-25 07:57] LABS: MUCOUS Present /lpf; PH 6 (5-8); SQUAMOUS EPITHELIAL 0-2 /hpf; URINE APPEARANCE Hazy; URINE BACTERIA None Seen /hpf; URINE BILIRUBIN Negative (NEGATIVE); URINE BLOOD Negative (NEGATIVE); URINE COLOR Yellow; URINE GLUCOSE Negative (NEGATIVE); URINE KETONE Negative (NEGATIVE); URINE LEUKOCYTE ESTERASE Negative (NEGATIVE); URINE NITRATE Negative (NEGATIVE); URINE PROTEIN(semi-quant) Negative (NEGATIVE); URINE UROBILINOGEN Negative (NEGATIVE)
[2019-10-25 12:00] VITALS: BP 150/106; PULSE 109; TEMP 97.8
== END 2019-10-25 16:08 | disposition home or self-care (01) ==
LOC: COL.ER 04:24
PROVIDERS: Emergency Medicine
DX: F15.10 Other stimulant abuse, uncomplicated (principal); F31.9 Bipolar disorder, unspecified; F17.210 Nicotine dependence, cigarettes, uncomplicated

== ENCOUNTER 2023-01-12 03:40 | Emergency (ER) | payer MEDICAID ==
[~2023-01-12] VITALS: Ht 165.1 cm; Wt 113.6 kg
[2023-01-12 03:41] VITALS: TEMP 97.4
[2023-01-12 04:34] LABS: HEMATOCRIT 38.7 % (37.0-47.0); HEMOGLOBIN 12.5 g/dl (12.5-16.0); MEAN CELL VOLUME 85 fl (80.0-100.0); MEAN CORPUSCULAR HEMOGLOBIN 27 pg (27-31); MEAN CORPUSCULAR HGB CONC 32 g/dl (33.0-37.0); MEAN PLATELET VOLUME 9.7 fl (7.4-10.4); PLATELET COUNT 284 K/mm3 (130-400); RED BLOOD COUNT 4.58 M/mm3 (4.10-5.30); REDCELL DISTRIBUTION WIDTH-CV 14.4 % (11.5-14.5)
[2023-01-12 04:52] LABS: ALANINE AMINOTRANSFERASE 76 U/L (0-55); ALBUMIN 3.7 gm/dL (3.5-5.0); ALCOHOL(ethanol),MEDICAL 87 mg/dL (0-10); ALKALINE PHOSPHATASE 55 U/L (40-150); ANION GAP 14 mmol/L (7-16); AST,SGOT 42 U/L (5-34); BILIRUBIN,TOTAL 0.2 mg/dL (0.2-1.2); BLOOD UREA NITROGEN 12 mg/dL (7-19); CALCIUM 8.9 mg/dL (8.4-10.2); CARBON DIOXIDE 16 mmol/L (22-29); CHLORIDE 110 mmol/L (98-107); CREATININE, serum 0.75 mg/dL (0.57-1.11); GLUCOSE 116 mg/dL (70-99); POTASSIUM 4.2 mmol/L (3.5-4.5); SODIUM 140 mmol/L (136-145); TOTAL PROTEIN 7.3 gm/dL (6.2-8.1)
[2023-01-12 04:54] LABS: ACETAMINOPHEN < 1.0 ug/mL (10-30); SALICYLATE < 5.0 mg/dL (15.0-30.0)
[2023-01-12 05:24] LABS: EOSINOPHIL 2 % (0-4); LYMPHOCYTE 34 % (20.0-51.0); MYELOCYTE 1 % (0-0); NEUTROPHILS 61 % (42.0-75.2); PLATELET ESTIMATE NORMAL (NORMAL)
[2023-01-12 05:25] LABS: BURR CELLS 1+; HYPOCHROMIA 1+
[2023-01-12 06:42] VITALS: BP 130/83; PULSE 96
== END 2023-01-12 06:50 | disposition home or self-care (01) ==
LOC: COL.ER 03:40
PROVIDERS: Emergency Medicine
DX: F10.129 Alcohol abuse with intoxication, unspecified (principal); R42 Dizziness and giddiness; R19.7 Diarrhea, unspecified; R74.01 Elevation of levels of liver transaminase levels; D72.829 Elevated white blood cell count, unspecified; Z28.310 Unvaccinated for COVID-19
CPT/HCPCS: J2405; J7030

== ENCOUNTER 2023-01-21 16:54 | Emergency (ER) | payer MEDICAID ==
[~2023-01-21] VITALS: Ht 165.1 cm; Wt 113.6 kg
[2023-01-21 17:06] VITALS: TEMP 99.1
[2023-01-21 17:51] LABS: BASO # 0.1 K/mm3 (0.0-0.2); BASO % 0.6 % (0.0-2.0); EOS # 0.7 K/mm3 (0.0-0.7); EOS % 6.4 % (0.0-4.0); GRAN % 63.7 % (42.2-75.2); HEMATOCRIT 35.8 % (37.0-47.0); LYMPH # 2.3 K/mm3 (1.2-3.4); LYMPH % 21.4 % (20.0-51.0); MEAN CELL VOLUME 81 fl (80.0-100.0); MEAN CORPUSCULAR HEMOGLOBIN 27 pg (27-31); MEAN CORPUSCULAR HGB CONC 34 g/dl (33.0-37.0); MEAN PLATELET VOLUME 9.3 fl (7.4-10.4); MONO # 0.8 K/mm3 (0.1-0.6); MONO % 7.3 % (1.7-9.3); PLATELET COUNT 282 K/mm3 (130-400); RED BLOOD COUNT 4.41 M/mm3 (4.10-5.30)
[2023-01-21 18:09] LABS: ALANINE AMINOTRANSFERASE 115 U/L (0-55); ALBUMIN 4.1 gm/dL (3.5-5.0); ALKALINE PHOSPHATASE 72 U/L (40-150); ANION GAP 11 mmol/L (7-16); AST,SGOT 60 U/L (5-34); BILIRUBIN,TOTAL 0.8 mg/dL (0.2-1.2); BLOOD UREA NITROGEN 9 mg/dL (7-19); CALCIUM 8.7 mg/dL (8.4-10.2); CARBON DIOXIDE 19 mmol/L (22-29); CHLORIDE 106 mmol/L (98-107); CREATININE, serum 0.86 mg/dL (0.57-1.11); GLUCOSE 131 mg/dL (70-99); POTASSIUM 3.5 mmol/L (3.5-4.5); SODIUM 136 mmol/L (136-145); TOTAL PROTEIN 7.6 gm/dL (6.2-8.1)
[2023-01-21 18:15] LABS: ACETAMINOPHEN < 1.0 ug/mL (10-30); ALCOHOL(ethanol),MEDICAL < 10 mg/dL (0-10); SALICYLATE < 5.0 mg/dL (15.0-30.0)
[2023-01-21 18:28] LABS: TSH w REFLEX 1.521 uIU/mL (0.350-4.940)
[2023-01-21 18:39] LABS: COLLECTION METHOD CLEAN CATCH
[2023-01-21 18:59] LABS: URINE BACTERIA None Seen /hpf (NONE SEEN); URINE RBC 0-2 /hpf (0-2)
[2023-01-21 19:02] LABS: PH 5.5 (5.0-8.5); URINE APPEARANCE Cloudy (CLEAR/HAZY); URINE COLOR Yellow (YELLOW); URINE GLUCOSE Negative (NEGATIVE); URINE KETONE Negative (NEGATIVE); URINE NITRATE Negative (NEGATIVE); URINE PROTEIN(semi-quant) Negative (NEGATIVE); URINE UROBILINOGEN 0.2 E.U/dL (0.2-1.0)
[2023-01-21 19:03] LABS: URINE BLOOD TRACE-INTACT (NEGATIVE)
[2023-01-21 19:07] LABS: TRICYCLIC ANTIDEPRESS URINE NEGATIVE
[2023-01-21 19:15] VITALS: BP 129/62; PULSE 105
== END 2023-01-22 01:43 | disposition left against medical advice (07) ==
LOC: COL.ER 16:54
PROVIDERS: Nurse Practitioner
DX: F31.9 Bipolar disorder, unspecified (principal); R45.851 Suicidal ideations; F15.10 Other stimulant abuse, uncomplicated; Z20.822 Contact with and (suspected) exposure to COVID-19

== ENCOUNTER 2023-01-24 15:03 | Emergency (ER) | payer MEDICAID ==
[~2023-01-24] VITALS: Ht 162.6 cm; Wt 113.6 kg
[2023-01-24 16:31] LABS: BASO # 0.1 K/mm3 (0.0-0.2); BASO % 0.5 % (0.0-2.0); EOS # 0.5 K/mm3 (0.0-0.7); EOS % 3.5 % (0.0-4.0); GRAN # 9.8 K/mm3 (1.4-6.5); GRAN % 66.5 % (42.2-75.2); HEMATOCRIT 37.7 % (37.0-47.0); HEMOGLOBIN 12.1 g/dl (12.5-16.0); LYMPH % 20.3 % (20.0-51.0); MEAN CELL VOLUME 83 fl (80.0-100.0); MEAN CORPUSCULAR HEMOGLOBIN 27 pg (27-31); MEAN CORPUSCULAR HGB CONC 32 g/dl (33.0-37.0); MEAN PLATELET VOLUME 9.7 fl (7.4-10.4); MONO # 1.3 K/mm3 (0.1-0.6); MONO % 8.6 % (1.7-9.3); PLATELET COUNT 341 K/mm3 (130-400); RED BLOOD COUNT 4.54 M/mm3 (4.10-5.30); REDCELL DISTRIBUTION WIDTH-CV 13.8 % (11.5-14.5)
[2023-01-24 16:55] LABS: ALANINE AMINOTRANSFERASE 101 U/L (0-55); ALBUMIN 4.1 gm/dL (3.5-5.0); ALKALINE PHOSPHATASE 79 U/L (40-150); ANION GAP 15 mmol/L (7-16); AST,SGOT 52 U/L (5-34); BILIRUBIN,TOTAL 0.6 mg/dL (0.2-1.2); BLOOD UREA NITROGEN 7 mg/dL (7-19); CARBON DIOXIDE 19 mmol/L (22-29); CHLORIDE 106 mmol/L (98-107); CREATININE, serum 0.92 mg/dL (0.57-1.11); GLUCOSE 113 mg/dL (70-99); POTASSIUM 3.3 mmol/L (3.5-4.5); SODIUM 140 mmol/L (136-145); TOTAL PROTEIN 7.8 gm/dL (6.2-8.1)
[2023-01-24 16:56] LABS: ACETAMINOPHEN < 1.0 ug/mL (10-30); SALICYLATE < 5.0 mg/dL (15.0-30.0)
[2023-01-24 16:57] LABS: ALCOHOL(ethanol),MEDICAL < 10 mg/dL (0-10)
[2023-01-24 18:41] LABS: COLLECTION METHOD CLEAN CATCH
[2023-01-24 18:52] LABS: PH 5.5 (5.0-8.5); URINE APPEARANCE Hazy (CLEAR/HAZY); URINE BLOOD TRACE-INTACT (NEGATIVE); URINE COLOR Yellow (YELLOW); URINE GLUCOSE Negative (NEGATIVE); URINE KETONE Negative (NEGATIVE); URINE NITRATE Negative (NEGATIVE); URINE PROTEIN(semi-quant) 1+ (NEGATIVE); URINE UROBILINOGEN 0.2 E.U/dL (0.2-1.0)
[2023-01-24 19:02] LABS: TRICYCLIC ANTIDEPRESS URINE NEGATIVE
[2023-01-24 20:35] LABS: MUCOUS Present (NOT PRESENT); SQUAMOUS EPITHELIAL 20-50 /hpf (0-10); URINE BACTERIA Rare /hpf (NONE SEEN); URINE CALCIUM OXALATE CRYSTAL Present (NOT PRESENT)
--- NOTE | 2023-01-25 07:00 | NUR ---
In bed, asleep.
--- NOTE | 2023-01-25 08:00 | NUR ---
In bed, sleeping.
[2023-01-25 09:07] VITALS: BP 143/58; PULSE 93; TEMP 98.7
--- NOTE | 2023-01-25 09:08 | NUR ---
Pt awake, eating breakfast. Mumbling, swinging legs in bed.
[2023-01-25 11:50] VITALS: BP 150/76; PULSE 80; TEMP 98
[2023-01-25 13:21] VITALS: BP 142/82; PULSE 92; TEMP 98.6
== END 2023-01-25 13:39 ==
LOC: COL.ER 15:03
PROVIDERS: Nurse Practitioner
DX: F31.9 Bipolar disorder, unspecified (principal); F15.10 Other stimulant abuse, uncomplicated; E87.6 Hypokalemia; D72.829 Elevated white blood cell count, unspecified; F17.210 Nicotine dependence, cigarettes, uncomplicated; Z28.310 Unvaccinated for COVID-19; Z20.822 Contact with and (suspected) exposure to COVID-19

== ENCOUNTER 2024-08-18 14:24 | Emergency (ER) | payer MEDICARE ==
[~2024-08-18] VITALS: Ht 165.1 cm; Wt 125.0 kg
[~2024-08-18 14:24] MED LIST changes: +INVEGA SUSTENN117 MG IM
[2024-08-18 14:41] VITALS: TEMP 98.2
[2024-08-18 16:26] LABS: COLLECTION METHOD CLEAN CATCH
[2024-08-18 16:31] LABS: BASO # 0.1 K/mm3 (0.0-0.2); BASO % 0.7 % (0.0-2.0); EOS # 0.4 K/mm3 (0.0-0.7); EOS % 3.1 % (0.0-4.0); GRAN # 8.8 K/mm3 (1.4-6.5); GRAN % 64.1 % (42.2-75.2); HEMATOCRIT 42.4 % (37.0-47.0); HEMOGLOBIN 14.3 g/dl (12.5-16.0); LYMPH # 3.6 K/mm3 (1.2-3.4); MEAN CELL VOLUME 81 fl (80.0-100.0); MEAN CORPUSCULAR HEMOGLOBIN 27 pg (27-31); MEAN CORPUSCULAR HGB CONC 34 g/dl (33.0-37.0); MEAN PLATELET VOLUME 9.9 fl (7.4-10.4); MONO # 0.7 K/mm3 (0.1-0.6); PLATELET COUNT 317 K/mm3 (130-400); RED BLOOD COUNT 5.21 M/mm3 (4.10-5.30); REDCELL DISTRIBUTION WIDTH-CV 13.3 % (11.5-14.5)
[2024-08-18 16:36] LABS: PH 5.5 (5.0-8.5); URINE APPEARANCE CLOUDY (CLEAR/HAZY); URINE BLOOD 1+ (NEGATIVE); URINE COLOR YELLOW (YELLOW); URINE GLUCOSE 3+ (NEGATIVE); URINE KETONE NEGATIVE (NEGATIVE); URINE NITRATE NEGATIVE (NEGATIVE); URINE PROTEIN(semi-quant) NEGATIVE (NEGATIVE); URINE UROBILINOGEN 0.2 E.U/dL (0.2-1.0)
[2024-08-18 16:47] LABS: ALANINE AMINOTRANSFERASE 194 U/L (0-55); ALBUMIN 3.9 g/dL (3.5-5.0); ALKALINE PHOSPHATASE 261 U/L (40-150); ANION GAP 14 mmol/L (7-16); AST,SGOT 61 U/L (5-34); BILIRUBIN,TOTAL 0.4 mg/dL (0.2-1.2); BLOOD UREA NITROGEN 10 mg/dL (10-20); CALCIUM 9.2 mg/dL (8.4-10.2); CHLORIDE 96 mEq/L (98-107); CREATININE, serum 0.99 mg/dL (0.57-1.11); POTASSIUM 4.1 mEq/L (3.5-4.5); SODIUM 129 mEq/L (136-145); TOTAL PROTEIN 8.4 g/dl (6.2-8.1)
[2024-08-18 16:55] LABS: GLUCOSE 575 mg/dL (70-99)
[2024-08-18 16:58] LABS: URINE BACTERIA MODERATE /hpf (NONE SEEN); URINE RBC 0-2 /hpf (0-2)
[2024-08-18 16:59] LABS: TRICYCLIC ANTIDEPRESS URINE NEGATIVE (NEGATIVE)
[2024-08-18 17:07] LABS: TSH w REFLEX 1.774 uIU/mL (0.350-4.940)
[2024-08-18 17:15] LABS: ALCOHOL(ethanol),MEDICAL < 10 mg/dL (0-10); SALICYLATE < 5.0 mg/dL (15.0-30.0)
[2024-08-18] MEDS ORDERED: LR 1,000 ML IV ONE ×2 (17:30→19:00)
[2024-08-18] MEDS ORDERED: Insulin Regular Human (NovoLIN R/HumuLIN R) IV ONE ×2 (17:30→19:00)
[2024-08-18 18:36] VITALS: BP 134/77; PULSE 91
[2024-08-18] MEDS ORDERED: CEPHALEXIN500 M1 PO (19:00)
== END 2024-08-18 19:10 | disposition left against medical advice (07) ==
LOC: COL.ER 14:24
PROVIDERS: Emergency Medicine
DX: R73.9 Hyperglycemia, unspecified (principal); N39.0 Urinary tract infection, site not specified; F43.9 Reaction to severe stress, unspecified; Z20.822 Contact with and (suspected) exposure to COVID-19; Z53.29 Procedure and treatment not carried out because of patient's decision for other reasons
CPT/HCPCS: J1815; J7120